=== PATIENT | male | born 1955 | race Hispanic/Latino ===

== ENCOUNTER 2019-11-03 12:19 | Emergency (ER) | payer OTHER ==
--- NOTE | 2019-11-03 12:43 | ER ---
Nurse's Notes [facility] Name: Ananda Alexis Age: 63 yrs Sex: Male : 1955 Arrival Date: 11/03/2019 Time: 12:21 Bed 18 Private MD: Diagnosis: diarrhea Presentation: 11/03 12:29 Presenting complaint: N/V/D, lower abdominal pain, and subjective fever x 3 days. hb Transition of care: patient was not received from another setting of care. Onset of symptoms was November 01, 2019. Risk Assessment: Do you want to hurt yourself or someone else? Patient reports no desire to harm self or others. Initial Sepsis Screen: Does the patient meet any 2 criteria? No. Patient's initial sepsis screen is negative. Does the patient have a suspected source of infection? No. Patient's initial sepsis screen is negative. Care prior to arrival: None. 12:29 Method Of Arrival: Ambulatory hb 12:29 Acuity: LEIGH ANN 3 hb Historical: - Allergies: 12:30 PENICILLINS; hb - Home Meds: 12:30 None [Active]; hb - PMHx: 12:30 None; hb - PSHx: 12:30 Cataracts - Bilat; hb - Immunization history:: Adult Immunizations up to date. - Social history:: Smoking status: Patient/guardian denies using tobacco. - Ebola Screening: : No symptoms or risks identified at this time. Screenin:37 Abuse screen: Denies threats or abuse. Nutritional screening: No deficits noted. tw2 Tuberculosis screening: No symptoms or risk factors identified. Fall Risk Secondary diagnosis (15 points) impaired mobility. Assessment: 12:40 General: Appears in no apparent distress. Behavior is calm, cooperative, appropriate tw2 for age. Pain: Denies pain. Neuro: Level of Consciousness is awake, alert, obeys commands, Oriented to person, place, time, situation. Cardiovascular: Heart tones S1 S2 Patient's skin is warm and dry. Respiratory: Airway is patent Respiratory effort is even, unlabored, Respiratory pattern is regular, symmetrical, Breath sounds are clear bilaterally. GI: Abdomen is flat, Bowel sounds present X 4 quads. Reports diarrhea. : No signs and/or symptoms were reported regarding the genitourinary system. EENT: No signs and/or symptoms were reported regarding the EENT system. Derm: No signs and/or symptoms reported regarding the dermatologic system. Musculoskeletal: Range of motion: intact in all extremities. 12:54 Reassessment: Patient appears in no apparent distress at this time. Patient and/or tw2 family updated on plan of care and expected duration. Pain level reassessed. Patient is alert, oriented x 3, equal unlabored respirations, skin warm/dry/pink. Vital Signs: 12:30 BP 131 / 89; Pulse 90; Resp 16; Temp 98.1; Pulse Ox 96% on R/A; Weight 82 kg; Height 5 hb ft. 11 in. (180.34 cm); Pain 6/10; 12:30 Body Mass Index 25.21 (82.00 kg, 180.34 cm) hb ED Course: 12:21 Patient arrived in ED. as 12:29 Triage completed. hb 12:29 Nicholas Christianson MD is Attending Physician. ps1 12:30 Arm band placed on. hb 12:36 Nayana Jiménez RN is Primary Nurse. tw2 12:37 Bed in low position. Call light in reach. tw2 12:53 No provider procedures requiring assistance completed. Patient did not have IV access tw2 during this emergency room visit. Administered Medications: No medications were administered Outcome: 12:43 Discharge ordered by MD. ps1 12:54 Discharged to home ambulatory, with family. tw2 12:54 Condition: stable 12:54 Discharge instructions given to patient, family, Instructed on discharge instructions, follow up and referral plans. medication usage, Demonstrated understanding of instructions, follow-up care, medications, Prescriptions given X 3. 12:54 Patient left the ED. tw2 Signatures: Juliana Delacruz Heather, RN RN Nayana Jiménez RN RN tw2 Nicholas Christianson MD MD ps1
--- NOTE | 2019-11-03 12:43 | EDPHYS ---
Physician Documentation [facility] Name: Ananda Alexis Age: 63 yrs Sex: Male : 1955 Arrival Date: 11/03/2019 Time: 12:21 Bed 18 Private MD: ED Physician Nicholas Christianson HPI: 11/03 12:40 This 63 yrs old Male presents to ER via Ambulatory with complaints of Diarrhea.ps1 12:40 patient has diarrhea, non-bloody for 3 days. No medications taken BANQUET COOK. Had in ps1 intermittent nausea without vomiting. No medical history otherwise. States that he has multiple bowel movements a day. He has been taking Pedialyte to stay hydrated. No fever. . Historical: - Allergies: 12:30 PENICILLINS; hb - Home Meds: 12:30 None [Active]; hb - PMHx: 12:30 None; hb - PSHx: 12:30 Cataracts - Bilat; hb - Immunization history:: Adult Immunizations up to date. - Social history:: Smoking status: Patient/guardian denies using tobacco. - Ebola Screening: : No symptoms or risks identified at this time. ROS: 12:40 Constitutional: Negative for fever, chills, and weight loss, Eyes: Negative for injury, ps1 pain, redness, and discharge, Cardiovascular: Negative for chest pain, palpitations, and edema, Respiratory: Negative for shortness of breath, cough, wheezing, and pleuritic chest pain, MS/Extremity: Negative for injury and deformity, Skin: Negative for injury, rash, and discoloration, Neuro: Negative for headache, weakness, numbness, tingling, and seizure. 12:40 Abdomen/GI: Positive for nausea, diarrhea, Negative for abdominal pain, vomiting. Exam: 12:42 Constitutional: This is a well developed, well nourished patient who is awake, alert, ps1 and in no acute distress. Head/Face: Normocephalic, atraumatic. Eyes: Pupils equal round and reactive to light, extra-ocular motions intact. Lids and lashes normal. Conjunctiva and sclera are non-icteric and not injected. Chest/axilla: Normal chest wall appearance and motion. Nontender with no deformity. No lesions are appreciated. Cardiovascular: Regular rate and rhythm. No gallops, murmurs, or rubs. Normal PMI, no JVD. No pulse deficits. Respiratory: Lungs have equal breath sounds bilaterally, clear to auscultation and percussion. No rales, rhonchi or wheezes noted. No increased work of breathing, no retractions or nasal flaring. Abdomen/GI: Soft, non-tender, with normal bowel sounds. No distension or tympany. No guarding or rebound. No evidence of tenderness throughout. MS/ Extremity: Pulses equal, no cyanosis. Neurovascular intact. Full, normal range of motion. Neuro: Awake and alert, GCS 15, oriented to person, place, time, and situation. Cranial nerves II-XII grossly intact. Sensory grossly intact. Psych: Awake, alert, with orientation to person, place and time. Behavior, mood, and affect are within normal limits. Vital Signs: 12:30 BP 131 / 89; Pulse 90; Resp 16; Temp 98.1; Pulse Ox 96% on R/A; Weight 82 kg; Height 5 hb ft. 11 in. (180.34 cm); Pain 6/10; 12:30 Body Mass Index 25.21 (82.00 kg, 180.34 cm) hb MDM: 12:30 Patient medically screened. ps1 12:42 Differential diagnosis: Nonspecific abd pain, gastritis, diverticulitis, viral ps1 gastroenteritis, and others. Data reviewed: vital signs, nurses notes, and as a result, I will discharge patient. Counseling: I had a detailed discussion with the patient and/or guardian regarding: the historical points, exam findings, and any diagnostic results supporting the discharge/admit diagnosis, the presence of at least one elevated blood pressure reading (>120/80) during this emergency department visit, the need for outpatient follow up, to return to the emergency department if symptoms worsen or persist or if there are any questions or concerns that arise at home. Administered Medications: No medications were administered Disposition: 11/03/19 12:43 Discharged to Home. Impression: diarrhea. - Condition is Stable. - Discharge Instructions: Diarrhea, Adult. - Prescriptions for loperamide 2 mg Oral capsule - take 2 capsule by ORAL route every 1-2 hours after 1st loose stool, followed by 1 capsule after each subsequent loose stool not to exceed 16 mg/day; 30 capsule. Bentyl 10 mg Oral Capsule - take 1 capsule by ORAL route every 6 hours As needed; 40 capsule. Zofran 4 mg Oral Tablet - take 1 tablet by ORAL route every 12 hours As needed; 20 tablet. - Medication Reconciliation Form, Thank You Letter, Antibiotic Education, Prescription Opioid Use form. - Follow up: Private Physician; When: As needed; Reason: Further diagnostic work-up, Recheck today's complaints, Continuance of care, Re-evaluation by your physician. Follow up: Emergency Department; When: As needed; Reason: Fever > 102 F, Worsening of condition. - Problem is new. - Symptoms are unchanged. Signatures: Ana Herrera RN RN Nayana Jiménez RN RN tw2 Nicholas Christianson MD MD ps1 Corrections: (The following items were deleted from the chart) 12:54 12:43 11/03/2019 12:43 Discharged to Home. Impression: diarrhea. Condition is Stable. tw2 Forms are Medication Reconciliation Form, Thank You Letter, Antibiotic Education, Prescription Opioid Use. Follow up: Private Physician; When: As needed; Reason: Further diagnostic work-up, Recheck today's complaints, Continuance of care, Re-evaluation by your physician. Follow up: Emergency Department; When: As needed; Reason: Fever > 102 F, Worsening of condition. Problem is new. Symptoms are unchanged. ps1
[2019-11-03 16:24] VITALS: BP 131/89; TEMP 98.1; O2SAT 96
== END 2019-11-03 12:54 | disposition home or self-care (01) ==
LOC: ER 12:19
DX: R19.7 Diarrhea, unspecified (principal); Z88.0 Allergy status to penicillin
CPT/HCPCS: 99282

== ENCOUNTER 2019-11-03 22:05 | Emergency (ER) | payer OTHER ==
[2019-11-03] MEDS ORDERED: ONDANSETRON 4 MG/2 ML VIAL ONE (22:52)
[2019-11-03] MEDS ORDERED: FAMOTIDINE 20 MG/2 ML VIAL IV ONE (22:53)
[2019-11-03] MEDS ORDERED: NA CHLORIDE 0.9% 1,000 ML ONE (22:54)
[2019-11-04] MEDS ORDERED: ACETAMINOPHEN 500 MG TAB ONE (00:12)
[2019-11-04 00:38] LABS: Absolute Lymphocytes (CBC) 0.3 K/uL (0.7-4.9); Hematocrit 40.9 % (39.6-49.0); Lymphocytes % 32.4 % (15.3-44.8); MPV 8.2 fL (7.6-11.3); RBC Red Blood Cell Count 4.28 M/uL (4.33-5.43)
[2019-11-04 00:55] LABS: Albumin 2.8 g/dL (3.4-5.0); Bilirubin Direct 1.6 mg/dL (0-0.2); Bilirubin Total 2.2 mg/dL (0.2-1.0); Protein, Total 6.3 g/dL (6.4-8.2)
[2019-11-04 00:56] LABS: Potassium 2.7 mmol/L (3.5-5.1)
[2019-11-04] MEDS ORDERED: POTASSIUM 25 MEQ EFFERV TAB ONE (01:02)
[2019-11-04 01:21] LABS: Magnesium 1.9 mg/dL (1.8-2.4); Troponin (Emerg Dept Use Only) 0.06 ng/mL (0.0-0.045)
[2019-11-04 01:29] LABS: Platelet Estimate DECR
[2019-11-04 01:30] LABS: Blood Morphology Comment NOT SEEN (NOT SEEN); Urine White Blood Cell Casts OK
[2019-11-04 01:35] LABS: Urine Blood 2+ (NEG); Urine Glucose NEGATIVE (NEG); Urine Protein 2+ (NEG); Urine Specific Gravity >1.030 (1.005-1.030); Urine pH 5.5 (5.0-7.0)
[2019-11-04 01:40] LABS: Urine Bacteria >50 /HPF (NONE SEEN); Urine Coarse Granular Casts >10 /LPF (NONE SEEN); Urine RBC <5 /HPF (NONE SEEN)
[2019-11-04 01:41] LABS: Urine Culture Reflex Order REFLEXED
[2019-11-04] MEDS ORDERED: PIPER/TAZO/NS 3.375gm 3.375 GM/100 ML BAG ONE (02:01)
[2019-11-04] MEDS ORDERED: METRONIDAZOLE 500mg IVPB 500 MG/100 ML BAG IV ONE (02:03)
[2019-11-04] MEDS ORDERED: Levofloxacin500mg IV 500 MG/100 ML BAG IV ONE (02:03)
[2019-11-04 02:44] LABS: Protime INR 1.09
[2019-11-04] MEDS ORDERED: NA CHLORIDE 0.9% 250 ML ONE (03:28)
[2019-11-04] MEDS ORDERED: NA CHLORIDE 0.9% 1,000 ML ONE ×3 (03:28→06:11)
[2019-11-04] MEDS ORDERED: VANCOMYCIN 1 GM/VIAL ONE (03:28)
[2019-11-04] MEDS ORDERED: KETOROLAC 30 MG/ML INJ ONE (04:38)
--- NOTE | 2019-11-04 05:16 | EDPHYS ---
Physician Documentation [facility] Name: Ananda Alexis Age: 63 yrs Sex: Male : 1955 Arrival Date: 11/03/2019 Time: 22:11 Bed 14 Private MD: ED Physician Giorgio Mayfield HPI: 11/04 03:16 This 63 yrs old Male presents to ER via Ambulatory with complaints of wa Vomiting, Diarrhea. 03:21 The patient presents to the emergency department with nausea, vomiting, diarrhea. wa Onset: The symptoms/episode began/occurred 2 day(s) ago. Possible causes: unknown. The symptoms are aggravated by nothing. The symptoms are alleviated by nothing. Associated signs and symptoms: Pertinent positives: abdominal pain, diarrhea, nausea, vomiting. Severity of symptoms: At their worst the symptoms were moderate in the emergency department the symptoms are unchanged. The patient has not experienced similar symptoms in the past. The patient has been recently seen by a physician:. c/o vomiting and diarrhea x 2 days. seen today and d/c'd with meds but per family, not improving. brought in for further eval. . Historical: - Allergies: 11/03 22:28 PENICILLINS; ea - Home Meds: 22:28 None [Active]; ea - PMHx: 22:28 None; ea - Immunization history:: Adult Immunizations up to date. - Social history:: Smoking status: Patient/guardian denies using tobacco. - Ebola Screening: : No symptoms or risks identified at this time. - Family history:: not pertinent. - Hospitalizations: : No recent hospitalization is reported. ROS: 11/04 03:26 Constitutional: Negative for fever, chills, and weight loss, Eyes: Negative for injury, wa pain, redness, and discharge, ENT: Negative for injury, pain, and discharge, Neck: Negative for injury, pain, and swelling, Cardiovascular: Negative for chest pain, palpitations, and edema, Respiratory: Negative for shortness of breath, cough, wheezing, and pleuritic chest pain, Back: Negative for injury and pain, : Negative for injury, bleeding, discharge, and swelling, MS/Extremity: Negative for injury and deformity, Skin: Negative for injury, rash, and discoloration, Neuro: Negative for headache, weakness, numbness, tingling, and seizure. Abdomen/GI: Positive for abdominal pain, nausea and vomiting, vomiting, diarrhea. All other systems are negative. Exam: 03:27 Constitutional: This is a well developed, well nourished patient who is awake, alert, wa and in no acute distress. Head/Face: Normocephalic, atraumatic. Eyes: Pupils equal round and reactive to light, extra-ocular motions intact. Lids and lashes normal. Conjunctiva and sclera are non-icteric and not injected. Cornea within normal limits. Periorbital areas with no swelling, redness, or edema. ENT: Nares patent. No nasal discharge, no septal abnormalities noted. Tympanic membranes are normal and external auditory canals are clear. Oropharynx with no redness, swelling, or masses, exudates, or evidence of obstruction, uvula midline. Mucous membranes moist. Neck: Trachea midline, no thyromegaly or masses palpated, and no cervical lymphadenopathy. Supple, full range of motion without nuchal rigidity, or vertebral point tenderness. No Meningismus. Chest/axilla: Normal chest wall appearance and motion. Nontender with no deformity. No lesions are appreciated. Respiratory: Lungs have equal breath sounds bilaterally, clear to auscultation and percussion. No rales, rhonchi or wheezes noted. No increased work of breathing, no retractions or nasal flaring. Back: No spinal tenderness. No costovertebral tenderness. Full range of motion. Skin: Warm, dry with normal turgor. Normal color with no rashes, no lesions, and no evidence of cellulitis. MS/ Extremity: Pulses equal, no cyanosis. Neurovascular intact. Full, normal range of motion. Neuro: Awake and alert, GCS 15, oriented to person, place, time, and situation. Cranial nerves II-XII grossly intact. Motor strength 5/5 in all extremities. Sensory grossly intact. Cerebellar exam normal. Normal gait. Psych: Awake, alert, with orientation to person, place and time. Behavior, mood, and affect are within normal limits. 03:27 Cardiovascular: Rate: tachycardic, Rhythm: regular, Pulses: no pulse deficits are appreciated, Heart sounds: normal, Edema: is not appreciated, JVD: is not appreciated. 03:27 Respiratory: the patient does not display signs of respiratory distress, Respirations: normal, Breath sounds: are clear throughout, Respiratory rate: nml 03:27 Abdomen/GI: Inspection: abdomen appears normal, Bowel sounds: normal, Palpation: soft, in all quadrants, mild abdominal tenderness, in all quadrants. Vital Signs: 11/03 22:28 BP 118 / 79; Pulse 98; Resp 18; Temp 99.6; Pulse Ox 95% on R/A; Weight 74.84 kg; Height ea 5 ft. 11 in. (180.34 cm); 23:55 BP 121 / 74; Pulse 110; Resp 18; Temp 103(O); Pulse Ox 98% ; ea 11/04 00:00 BP 105 / 66; Pulse 105; Resp 18; Pulse Ox 97% on R/A; ea 02:02 Temp 101(O); ea 02:12 BP 106 / 89; Pulse 113; Resp 18; Pulse Ox 95% ; ea 03:32 BP 110 / 62; Pulse 117; Resp 18; Temp 101.8; Pulse Ox 95% ; ea 04:57 BP 114 / 77; Pulse 114; Resp 19; Pulse Ox 95% ; ea 05:00 BP 78 / 65; Pulse 104; Resp 18; Pulse Ox 95% on R/A; ea 05:32 BP 84 / 51; Pulse 108; Resp 19; Pulse Ox 95% on R/A; ea 06:05 BP 63 / 49; Pulse 126; Resp 18; Pulse Ox 95% on R/A; ea 06:32 BP 88 / 60; Pulse 92; Resp 18; Temp 99.5; Pulse Ox 95% on R/A; ea 11/03 22:28 Body Mass Index 23.01 (74.84 kg, 180.34 cm) ea Procedures: 06:12 Central Line: the site was prepped with in sterile fashion, chlorhexadine, a triple wa lumen catheter was inserted, in the right femoral vein, in 1 attempts. placement was verified, by blood return, the site was dressed with 4X4s, Tegaderm, using sterile technique, the patient tolerated the procedure, well. MDM: 11/03 22:22 Patient medically screened. ny 11/04 03:28 Differential diagnosis: noted febrile with tachycardia. r/o acute infectious process. wa see orders. will resusc and reevaluate sepsis? will honor protocol. Data reviewed: vital signs, nurses notes, lab test result(s), radiologic studies. Test interpretation: by ED physician or midlevel provider: labs noted for leukopenia and thormbocytopenia. CT read as thickening of distal appendix with minimal periappendiceal stranding which may represent acute appendicitis. . Response to treatment: the patient's symptoms have mildly improved after treatment. ED course: pt continues to have diarrhea in ED with fever and tachycardia. will do a sepsis work up. vanc added to leva/flagyl. reexam: no RLQ tenderness. will consult general surgery. admit for abx anf further eval. . 03:36 Test interpretation: by ED physician or midlevel provider: EKG: interp by me. sinus wa tach at 119. RBBB, incomplete. diffuse ST-T changes that are non-specific. . Admission orders: after a detailed discussion of the patient's condition and case, the admit orders are written by me. ED course: labs: noted for hypokalemia. elevated glucose 124. elevated BUN/Cr 34/1.69. elevated AST 71. elevated T. bili 2.2. lipase 458. platelet 119. leukopenia at 0.9. flu negative. HIV negative. mild elevation in troponin at 0.06. . ED course: pt with multiple abnormalities on labs. CT suggest possible appendicitis although presentation not classic. will consult gen surg.IV abx. fluids. reassess. 04:30 ED course: pt still tachycardic and febrile. elevated lactate. sepsis. abx given. sent ny stool studies. will admit to ICU. called placed to Dr. Lundberg, gen surgery due to CT abd/pelvis findings. . 05:09 ED course: pt accepted at [facility] by Assignment Manager Dr. Mcginnis for ny ICU. pt transferred as no ICU bed in this hospital at the moment and this septic pt needs and ICU bed. A moment ago, noted to be hypotensive. pt on 3rd liter of saline. will place a central line and administer pressors. will continue to monitor. 06:11 ED course: noted hypotensive. required central line. placed one. will start Levophed. ny will continue to assess. 06:30 Test interpretation: by ED physician or midlevel provider: EKG: interp by me: HR 119. wa sinus tach. incomplete RBBB. diffuse ST-T changes. 11/03 22:35 Order name: Basic Metabolic Panel; Complete Time: 03:34 ny 11/03 22:35 Order name: CBC with Diff; Complete Time: 03:35 ny 11/03 22:35 Order name: Hepatic Function; Complete Time: 03:35 ny 11/03 22:35 Order name: Lipase; Complete Time: 03:35 ny 11/03 22:35 Order name: Urine Microscopic Only; Complete Time: 03:35 ny 11/04 00:09 Order name: Urine Dipstick--Ancillary (enter results); Complete Time: 03:35 [facility] 11/04 00:09 Order name: Flu; Complete Time: 01:28 ny 11/04 00:45 Order name: CBC Smear Scan; Complete Time: 03:36 [facility] 11/04 00:48 Order name: HIV (1; Complete Time: 01:28 [facility] 11/04 00:56 Order name: Magnesium ny 11/04 00:56 Order name: NT PRO-BNP ny 11/04 00:56 Order name: PT-INR; Complete Time: 03:36 ny 11/04 00:56 Order name: Troponin (emerg Dept Use Only); Complete Time: 03:36 ny 11/04 00:57 Order name: Magnesium; Complete Time: 01:28 [facility] 11/04 00:56 Order name: XRAY Chest (1 view) ny 11/04 00:57 Order name: NT PRO-BNP; Complete Time: 01:28 [facility] 11/04 01:42 Order name: Urine Culture [facility] 11/04 03:20 Order name: Blood Culture Adult (2) ny 11/04 03:20 Order name: Lactate ny 11/04 03:25 Order name: Procalcitonin ny 11/04 04:25 Order name: Basic Metabolic Panel ny 11/04 04:27 Order name: Stool Culture ny 11/03 22:35 Order name: IV Saline Lock; Complete Time: 22:48 ny 11/03 22:35 Order name: Labs collected and sent; Complete Time: 22:48 ny 11/03 22:35 Order name: Urine Dipstick-Ancillary (obtain specimen); Complete Time: 00:02 ny 11/04 00:56 Order name: EKG; Complete Time: 00:57 ny 11/04 00:56 Order name: Cardiac monitoring; Complete Time: 01:19 ny 11/04 00:56 Order name: EKG - Nurse/Tech; Complete Time: 01:20 ny 11/04 00:56 Order name: O2 Per Protocol; Complete Time: 01:20 ny 11/04 00:56 Order name: O2 Sat Monitoring; Complete Time: 02:24 ny 11/04 01:10 Order name: Abdomen EDMS 11/04 04:25 Order name: EKG - Nurse/Tech; Complete Time: 04:35 wa Administered Medications: 11/03 22:50 Drug: Zofran 4 mg Route: IVP; Site: left forearm; ea 11/04 00:02 Follow up: Response: No adverse reaction; Nausea is decreased ea 11/03 23:02 Drug: NS 0.9% 1000 ml Route: IV; Rate: 1 bolus; Site: left forearm; ea 11/04 00:01 Follow up: Response: No adverse reaction; IV Status: Completed infusion; IV Intake: ea 1000ml 11/03 23:03 Drug: Pepcid 20 mg Route: IVP; Site: left forearm; ea 11/04 00:02 Follow up: Response: No adverse reaction ea 00:14 Drug: Tylenol 1000 mg Route: PO; ea 03:00 Follow up: Response: No adverse reaction; Temperature is decreased ea 01:07 Drug: Potassium Effervescent Tablet 50 mEq Route: PO; ea 02:11 Follow up: Response: No adverse reaction ea 02:11 Drug: Flagyl 500 mg Volume: 100 ml; Route: IVPB; Rate: 200 ml/hr; Infused Over: 30 ea mins; Site: left forearm; 03:09 Follow up: Response: No adverse reaction; IV Status: Completed infusion ea 03:15 Drug: LevaQUIN 500 mg Volume: 100 ml; Route: IVPB; Infused Over: 60 mins; Site: left wh forearm; 04:16 Follow up: Response: No adverse reaction; IV Status: Completed infusion ea 03:30 Drug: NS 0.9% 1000 ml Route: IV; Rate: 1 bolus; Site: left forearm; ea 07:27 Follow up: Response: No adverse reaction; IV Status: Completed infusion; IV Intake: ea 1000ml 03:57 Drug: vancoMYCIN 1 grams Route: IVPB; Infused Over: 2 hrs; Site: right hand; 06:10 Follow up: Response: No adverse reaction; IV Status: Completed infusion ea 04:46 Drug: TORadol 30 mg Route: IVP; Site: right hand; ea 07:01 Follow up: Response: Temperature is decreased ea 04:56 Drug: NS 0.9% 1000 ml Route: IV; Rate: 1 bolus; Site: right hand; ea 07:00 Follow up: Response: No adverse reaction; IV Status: Completed infusion; IV Intake: ea 1000ml 06:27 Drug: Levophed (4 mg/250 mL D5W 4 mcg/min Route: IV; Rate: calculated rate; Site: right ea femoral; 07:02 Follow up: Response: No adverse reaction; IV Status: Infusion continued upon transfer ea Disposition: 11/04/19 05:15 Transfer ordered to [facility]. Diagnosis are Severe sepsis with septic shock, Diarrhea, unspecified, Vomiting, leukopenia. - Reason for transfer: Higher level of care. - Accepting physician is Dr. Mcginnis. . - Condition is Critical. - Problem is new. - Symptoms have worsened. Critical care time excluding procedures: 04:32 Critical care time: Bedside Care: 15 minutes, Consultation: 10 minutes, Family wa Intervention: 10 minutes. Total time: 35 minutes Signatures: Dispatcher [employer] EDIvy Angelo RN RN ea Habalo, Winsy wh Appiah, William, MD MD wa Corrections: (The following items were deleted from the chart) 01:01 00:57 Magnesium ordered. EDPA EDPA 01:01 00:57 NT PRO-BNP ordered. EDPA EDPA 01:01 00:57 TROPONIN (EMERG DEPT USE ONLY)+C.LAB.BRZ ordered. EDPA EDPA 01:10 12 22:42 Abdomen Pelvis W Con+CT.RAD.BRZ ordered. [facility] 11/04 07:26 05:15 11/04/2019 05:15 Transfer ordered to [facility]. Diagnosis is ea Severe sepsis with septic shock; Diarrhea, unspecified; Vomiting; leukopenia. Reason for transfer: Higher level of care. Accepting physician is Dr. Mcginnis. . Condition is Critical. Problem is new. Symptoms have worsened. wa
--- NOTE | 2019-11-04 05:16 | ER ---
Nurse's Notes [facility] Name: nAanda Alexis Age: 63 yrs Sex: Male : 1955 Arrival Date: 11/03/2019 Time: 22:11 Bed 14 Private MD: Diagnosis: Severe sepsis with septic shock;Diarrhea, unspecified;Vomiting;leukopenia Presentation: 11/03 22:24 Presenting complaint: Patient states: Reports he was seen here this morning for ea vomiting and diarrhea and was discharged home with loperamide, ondansetron, dicyclomine . Family reports pt continued to have n/v/d and is not getting any better. Transition of care: patient was not received from another setting of care. Onset of symptoms was November 03, 2019. Risk Assessment: Do you want to hurt yourself or someone else? Patient reports no desire to harm self or others. Initial Sepsis Screen: Does the patient meet any 2 criteria? No. Patient's initial sepsis screen is negative. Does the patient have a suspected source of infection? No. Patient's initial sepsis screen is negative. Care prior to arrival: None. 22:24 Method Of Arrival: Ambulatory ea 22:24 Acuity: LEIGH ANN 3 ea Historical: - Allergies: 22:28 PENICILLINS; ea - Home Meds: 22:28 None [Active]; ea - PMHx: 22:28 None; ea - Immunization history:: Adult Immunizations up to date. - Social history:: Smoking status: Patient/guardian denies using tobacco. - Ebola Screening: : No symptoms or risks identified at this time. - Family history:: not pertinent. - Hospitalizations: : No recent hospitalization is reported. Screenin:27 Abuse screen: Denies threats or abuse. Nutritional screening: No deficits noted. ea Tuberculosis screening: No symptoms or risk factors identified. Fall Risk None identified. Assessment: 22:29 General: Appears uncomfortable, Behavior is appropriate for age. Pain: Denies pain. ea Neuro: Level of Consciousness is awake, alert, obeys commands, Oriented to person, place, time, situation. Cardiovascular: Patient's skin is warm and dry. Respiratory: Airway is patent Respiratory effort is even, unlabored, Respiratory pattern is regular, symmetrical. GI: Abdomen is non-distended. Derm: Skin is dry, Skin is normal, Skin temperature is warm. Musculoskeletal: Circulation, motion, and sensation intact. 23:00 Reassessment: Patient and/or family updated on plan of care and expected duration. Pain ea level reassessed. Patient is alert, oriented x 3, equal unlabored respirations, skin warm/dry/pink. 11/04 00:00 Reassessment: Patient and/or family updated on plan of care and expected duration. Pain ea level reassessed. Patient is alert, oriented x 3, equal unlabored respirations, skin warm/dry/pink. 02:14 Reassessment: Patient and/or family updated on plan of care and expected duration. Pain ea level reassessed. Patient is alert, oriented x 3, equal unlabored respirations, skin warm/dry/pink. Patient states symptoms have improved. 03:25 Reassessment: Patient and/or family updated on plan of care and expected duration. Pain ea level reassessed. Patient is alert, oriented x 3, equal unlabored respirations, skin warm/dry/pink. Pt assisted to the restroom. Tolerated well. 04:49 Reassessment: Patient and/or family updated on plan of care and expected duration. Pain ea level reassessed. Pt resting with eyes closed, respirations even and unlabored. Chest expansions even and symmetrical. 05:29 Reassessment: Report given to Tonja PAULSON at [facility]. ea 06:18 Reassessment: Patient and/or family updated on plan of care and expected duration. Pain ea level reassessed. [facility] at facility for transfer. Report given [facility]. 06:48 Reassessment: Patient and/or family updated on plan of care and expected duration. Pain ea level reassessed. Patient is alert, oriented x 3, equal unlabored respirations, skin warm/dry/pink. Pt left via stretcher per EMS, pt lines patent with IV medications, pt tolerating well. Vital Signs: 11/03 22:28 BP 118 / 79; Pulse 98; Resp 18; Temp 99.6; Pulse Ox 95% on R/A; Weight 74.84 kg; Height ea 5 ft. 11 in. (180.34 cm); 23:55 BP 121 / 74; Pulse 110; Resp 18; Temp 103(O); Pulse Ox 98% ; ea 11/04 00:00 BP 105 / 66; Pulse 105; Resp 18; Pulse Ox 97% on R/A; ea 02:02 Temp 101(O); ea 02:12 BP 106 / 89; Pulse 113; Resp 18; Pulse Ox 95% ; ea 03:32 BP 110 / 62; Pulse 117; Resp 18; Temp 101.8; Pulse Ox 95% ; ea 04:57 BP 114 / 77; Pulse 114; Resp 19; Pulse Ox 95% ; ea 05:00 BP 78 / 65; Pulse 104; Resp 18; Pulse Ox 95% on R/A; ea 05:32 BP 84 / 51; Pulse 108; Resp 19; Pulse Ox 95% on R/A; ea 06:05 BP 63 / 49; Pulse 126; Resp 18; Pulse Ox 95% on R/A; ea 06:32 BP 88 / 60; Pulse 92; Resp 18; Temp 99.5; Pulse Ox 95% on R/A; ea 11/03 22:28 Body Mass Index 23.01 (74.84 kg, 180.34 cm) ea ED Course: 11/03 22:11 Patient arrived in ED. [id number] 22:22 Giorgio Mayfield MD is Attending Physician. wa 22:24 Ivy Mcbride, KHURRAM is Primary Nurse. ea 22:27 Triage completed. ea 22:27 Patient has correct armband on for positive identification. Bed in low position. Call ea light in reach. 22:28 Arm band placed on right wrist. Patient placed in an exam room, on a stretcher, on ea pulse oximetry. 22:43 Radiology exam delayed due to lab results not completed at this time. (BUN/Creatinine). nj 22:49 Inserted saline lock: 20 gauge in left forearm, using aseptic technique. Blood ea collected. 23:26 Radiology exam delayed due to lab results not completed at this time. (BUN/Creatinine). kw1 12 00:10 Radiology exam delayed due to lab results not completed at this time. (BUN/Creatinine). kw1 00:44 Radiology exam delayed due to lab results not completed at this time. (BUN/Creatinine). kw1 00:50 Inserted saline lock: 22 gauge in right hand, using aseptic technique. ea 01:40 Abdomen In Process Unspecified. EDMS 06:16 Assisted provider with central line placement. Set up central line tray. Triple lumen ea line placed in right femoral. Line placed by Giorgio Mayfield MD Placement verified by blood return, Patient tolerated well. 07:08 No provider procedures requiring assistance completed. Patient admitted, IV remains in ea place. 07:16 XRAY Chest (1 view) In Process Unspecified. EDMS Administered Medications: 11/03 22:50 Drug: Zofran 4 mg Route: IVP; Site: left forearm; ea 11/04 00:02 Follow up: Response: No adverse reaction; Nausea is decreased ea 11/03 23:02 Drug: NS 0.9% 1000 ml Route: IV; Rate: 1 bolus; Site: left forearm; ea 11/04 00:01 Follow up: Response: No adverse reaction; IV Status: Completed infusion; IV Intake: ea 1000ml 11/03 23:03 Drug: Pepcid 20 mg Route: IVP; Site: left forearm; ea 11/04 00:02 Follow up: Response: No adverse reaction ea 00:14 Drug: Tylenol 1000 mg Route: PO; ea 03:00 Follow up: Response: No adverse reaction; Temperature is decreased ea 01:07 Drug: Potassium Effervescent Tablet 50 mEq Route: PO; ea 02:11 Follow up: Response: No adverse reaction ea 02:11 Drug: Flagyl 500 mg Volume: 100 ml; Route: IVPB; Rate: 200 ml/hr; Infused Over: 30 ea mins; Site: left forearm; 03:09 Follow up: Response: No adverse reaction; IV Status: Completed infusion ea 03:15 Drug: LevaQUIN 500 mg Volume: 100 ml; Route: IVPB; Infused Over: 60 mins; Site: left wh forearm; 04:16 Follow up: Response: No adverse reaction; IV Status: Completed infusion ea 03:30 Drug: NS 0.9% 1000 ml Route: IV; Rate: 1 bolus; Site: left forearm; ea 07:27 Follow up: Response: No adverse reaction; IV Status: Completed infusion; IV Intake: ea 1000ml 03:57 Drug: vancoMYCIN 1 grams Route: IVPB; Infused Over: 2 hrs; Site: right hand; 06:10 Follow up: Response: No adverse reaction; IV Status: Completed infusion ea 04:46 Drug: TORadol 30 mg Route: IVP; Site: right hand; ea 07:01 Follow up: Response: Temperature is decreased ea 04:56 Drug: NS 0.9% 1000 ml Route: IV; Rate: 1 bolus; Site: right hand; ea 07:00 Follow up: Response: No adverse reaction; IV Status: Completed infusion; IV Intake: ea 1000ml 06:27 Drug: Levophed (4 mg/250 mL D5W 4 mcg/min Route: IV; Rate: calculated rate; Site: right ea femoral; 07:02 Follow up: Response: No adverse reaction; IV Status: Infusion continued upon transfer ea Intake: 00:01 IV: 1000ml; Total: 1000ml. ea 07:00 IV: 1000ml; Total: 2000ml. ea 07:27 IV: 1000ml; Total: 3000ml. ea Outcome: 05:15 ER care complete, transfer ordered by . omi 05:30 Instructed on the need for transfer. ea 06:48 Transferred by ground EMS to [facility], Transfer form completed. ea 06:48 Condition: stable 07:26 Patient left the ED. ea Addendum: 11/07/2019 11:21 Addendum: Culture Results: Positive urine culture. Positive blood culture. Phone call i w Attempt #1 called [facility], reported that pt has . Signatures: Dispatcher [employer] Dorie Fong RN RN iw Jordan, Nathan nj Antunez, Elena, RN RN ea Habalo, Winsy wh Appiah, William, MD MD wa Wilhelm, Kimberly kw1 Nikky Lopez jg7 Corrections: (The following items were deleted from the chart) 11/04 06:59 06:57 Levophed (4 mg/250 mL D5W 4 mcg/min IV at calculated rate in right femoral ea ea
--- NOTE | 2019-11-04 06:00 | EKG ---
Test Date: 2019-11-04 Test Time: 01:12:07 Front Desk Supervisor: GALA MEASUREMENT RESULTS: Intervals: Rate: 119 [place]: 136 QRSD: 102 QT: 300 QTc: 422 [place]: P: 60 [place]: 136 QRS: -26 T: 2 INTERPRETIVE STATEMENTS: Sinus tachycardia with premature atrial complexes with aberrant conduction Incomplete right bundle branch block Nonspecific ST and T wave abnormality Possible [id number]-[id number]-Myxyj syndrome or pre-excitation Abnormal ECG No previous ECG available for comparison Electronically Signed On 11-04-19 05:59:58 ROLL GRINDER OPERATOR by Dallas Nieto
[2019-11-04] MEDS ORDERED: NOREPINEPHRINE 4mg/D5W 250mL 4 MG/250 ML BAG IV ONE (06:11)
[2019-11-04] MEDS ORDERED: FENTANYL CITR 100 MCG/2 ML ONE (06:31)
[2019-11-04 07:42] VITALS: O2SAT 95
--- NOTE | 2019-11-04 07:43 | RAD REPORT ---
EXAM DESCRIPTION: [place] Single View11/04/2019 7:15 am CLINICAL HISTORY: Abdominal pain COMPARISON: 2012 FINDINGS: The lungs appear clear of acute infiltrate. The heart is normal size IMPRESSION: No acute abnormalities displayed
[2019-11-04 08:00] VITALS: BP 88/60; TEMP 99.5
--- NOTE | 2019-11-04 11:30 | RAD REPORT ---
EXAM DESCRIPTION: CT - Abdomen Pelvis Wo Contrast - 11/04/2019 5:57 am CLINICAL HISTORY: The patient is 63 years old and is Male; ABDOMINAL DISTENTION TECHNIQUE: Axial computed tomography images of the abdomen and pelvis without intravenous contrast. Sagittal and coronal reformatted images were created and reviewed. This CT exam was performed usi ng one or more of the following dose reduction techniques: automated exposure control, adjustment o f the mA and/or kV according to patient size, and/or use of iterative reconstruction technique. DLP: 830 mGy*cm COMPARISON: None. FINDINGS: LUNG BASES: Lung bases are clear. Punctate lingular granuloma. HEART: Visualized heart is normal. ABDOMEN: LIVER: Unremarkable. GALLBLADDER AND BILE DUCTS: Mild fluid distention of the gallbladder. No radiopaque gallstones or pericholecystic fluid. No ductal dilation. PANCREAS: Unremarkable. No ductal dilation. SPLEEN: Unremarkable. No splenomegaly. ADRENALS: Unremarkable. No mass. KIDNEYS AND URETERS: Nonspecific perinephric stranding. No obstructing stones. STOMACH AND BOWEL: Unremarkable. No obstruction. No mucosal thickening. PELVIS: APPENDIX: Thickening of the distal appendix measuring 1.3 cm. Mild periappendiceal stranding. BLADDER: Bladder is decompressed. No stones. REPRODUCTIVE: Unremarkable as visualized. ABDOMEN and PELVIS: INTRAPERITONEAL SPACE: Unremarkable. No free air. No significant fluid collection. BONES/JOINTS: Grade 1 anterolisthesis of L5 on S1 on a spondylolysis bases. Advanced L5-S1 disc space narrowing and vacuum phenomenon. S1 multifactorial degenerative changes. No acute fracture. No dislocation. SOFT TISSUES: Small fat-containing medical hernia. VASCULATURE: Unremarkable. No abdominal aortic aneurysm. LYMPH NODES: Unremarkable. No enlarged lymph nodes. IMPRESSION: Thickening of the distal appendix with minimal periappendiceal stranding which may repre sent acute appendicitis. Correlate with patient's presentation. THIS REPORT CONTAINS FINDINGS THAT MAY BE CRITICAL TO PATIENT'S CARE: The findings were verbally discussed via telephone conference with Giorgio Mayfield by Dr. Franks on 11/04/2019 1:49 AM TERMINAL COMPUTER OPERATOR. The results were acknowledged and understood. Electronically signed by: Alex Franks DO 11/04/2019 1:49 AM TERMINAL COMPUTER OPERATOR Due to temporary technical issues with the PACS/Fluency reporting system, reports are being signed by the in house radiologist as a courtesy to ensure prompt reporting. The interpreting radiologist is kosta ully responsible for the content of the report.
--- NOTE | 2019-11-04 13:27 | EKG ---
Test Date: 2019-11-04 Test Time: 04:34:59 Lean Leader: GALA MEASUREMENT RESULTS: Intervals: Rate: 131 [place]: 96 QRSD: 92 QT: 330 QTc: 487 [place]: P: 56 [place]: 96 QRS: -14 T: -8 INTERPRETIVE STATEMENTS: Sinus tachycardia with short MI with frequent and consecutive premature atrial complexes Incomplete right bundle branch block Nonspecific ST and T wave abnormality Abnormal ECG Compared to ECG 11/04/2019 01:12:07 Fusion complex(es) now present Ventricular premature complex(es) now present Short MI interval now present ST (T wave) deviation still present Electronically Signed On 11-04-19 13:26:44 DEPARTMENT OF MATHEMATICS CHAIR by Dallas Nieto
== END 2019-11-04 07:26 | disposition short-term general hospital (02) ==
LOC: ER 22:05
PROC: 06HM33Z Insertion of Infusion Device into Right Femoral Vein, Percutaneous Approach (ICD-10-PCS; principal; 2019-11-04)
DX: D72.819 Decreased white blood cell count, unspecified (principal); R65.21 Severe sepsis with septic shock; R19.7 Diarrhea, unspecified; Z88.0 Allergy status to penicillin
CPT/HCPCS: 96365; 96367; 96361; 96368; 93005 ×2; 87040 ×2; 87088; 85025; 87086; 80048 ×2; 36415 ×2; 83735; 87205 ×2; 85610; 80076; 83605; 87077 ×3; 87186 ×3; 84484; 83690; 84145; 83880; 87804 ×2; 74176; 71045; 96375; 99285; 96366; 36556; G0433; J3010; J2543; J7030 ×5; J2405; 81003; 81015